=== PATIENT | female | born 1995 ===

== ENCOUNTER 2019-09-08 18:27 | Inpatient (IN) | payer OTHER ==
[2019-09-08] MEDS ORDERED: TERBUTALINE 1 MG/1 ML INJ SUB-Q PRN (21:17)
[2019-09-08] MEDS ORDERED: fentaNYL 100 MCG/2 ML INJ IV PRN (21:17)
[2019-09-08] MEDS ORDERED: ePHEDrine SULFATE 50 MG/1 ML INJ IV PRN (21:17)
[2019-09-08] MEDS ORDERED: LIDOCAINE (2%) 20 MG/1 ML VIAL 20 ML MDV INFILTRATI ONE (21:17)
[2019-09-08] MEDS ORDERED: ONDANSETRON 4 MG/2 ML INJ IV PRN (21:17)
[2019-09-08 21:34] LABS: Hematocrit 36.2 % (30.3-42.9); Hemoglobin 12.2 gm/dl (10.1-14.3); Mean Corpuscular HGB Conc 34 % (30-34); Mean Corpuscular Volume 92 fl (79-97); Platelet Count 247 K/mm3 (140-440); Red Blood Count 3.92 M/mm3 (3.65-5.03); Red Cell Distribution Width 14.9 % (13.2-15.2)
--- NOTE | 2019-09-08 21:34 | History and Physical Report ---
History of Present Illness Date of examination: 09/08/19 Date of admission: 09/08/2019 Chief complaint: Leaking of water from vagina. History of present illness: 24 year old female presents complaining of leaking of clear fluid from vagina since 15:30 today. Patient denies vaginal bleeding or regular contractions. Patient reports active movement. Patient received care at [facility] and records are available. LMP 12/04/18. EDC 09/10/19. EGA 39 weeks, 5 days gestation. significant for the following: limited care; late transfer-in from [place] at 29 weeks gestation; positive chlamydia during (jeanette ated with Zithromax); ASCUS pap/+ HPV during ; anemia. labs are as follows: B+, antibody screen negative, rubella immune, hepatitis B surface antigen negative, HIV negative, RPR nonreactive, chlamydia positive (SRINATH negative on 09/07/19), gonorrhea negative, diabetes screen 124, GBS negative. 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 denies: gonorrhea, hepatitis B, herpes, HIV, syphilis, trichomonas Family/Genetic History: diabetes, other (epilepsy (brother), depression (sister)) Social history: lives with family, full code. denies: smoking, alcohol abuse, prescription drug abuse, IV drug use - Obstetrical History Expected Date of Delivery: 09/10/19 Actual Gestation: 39 Week(s) 5 Day(s) : 1 Para: 0 Hx # Term Pregnancies: 0 Number of Pregnancies: 0 Spontaneous Abortions: 0 Induced : 0 Number of Living Children: 0 Medications and Allergies Allergies Allergy/AdvReac Type Severity Reaction Status Date / Time No Known Allergies Allergy Verified 09/08/19 21:36 Active Meds: Active Medications Ephedrine Sulfate (Ephedrine Sulfate) 10 mg IV Q2M PRN PRN Reason: Hypotension Fentanyl (Sublimaze) 100 mcg IV Q2H PRN PRN Reason: Labor Pain Oxytocin/Sodium Chloride (Pitocin/Ns 20 Unit/1000ml Drip) 20 units in 1,000 mls @ 125 mls/hr IV DIRECT JACINTA Oxytocin/Sodium Chloride (Pitocin/Ns 30 Unit/500ml) 30 units in 500 mls @ 0 mls/hr IV TITR JACINTA; Protocol Lactated Ringer's (Lactated Ringers) 1,000 mls @ 125 mls/hr IV DIRECT JACINTA Lidocaine (Xylocaine 2%) 20 ml INFILTRATI ONCE ONE Stop: 09/08/19 21:18 Ondansetron HCl (Zofran) 4 mg IV Q8H PRN PRN Reason: Nausea And Vomiting Terbutaline Sulfate (Brethine) 0.25 mg SUB-Q ONCE PRN PRN Reason: Hyperstimulation/Hypertonicity Review of Systems All systems: negative (leaking of water from vagina and irregular contractions) - Vital Signs Vital signs: Vital Signs Pulse BP 54 L 137/79 09/08/19 19:22 09/08/19 19:22 Temp Pulse Resp BP Pulse Ox 99.2 F 59 L 18 137/79 97 09/08/19 19:24 09/08/19 20:03 09/08/19 19:24 09/08/19 19:24 09/08/19 20:03 - Physical Exam Abdomen: Positive: normal appearance, soft. Negative: distention, tenderness, guarding, rigidity Genitourinary (Female): Positive: normal external genitalia, normal perenium. Negative: perineal/vulvar lesions (no ulcerative lesions noted on careful exam with bright light upon admission; 3 small vulvar condyloma noted on perineum) Vagina: Positive: other (clear fluid seen leaking from vagina) Uterus: Positive: enlarged (S=D) Extremities: Positive: normal. Negative: tenderness, edema - Obstetrical FHR: category 1 Uterine Contraction Monitor Mode: External Cervical Dilatation: 1.5 Cervical Effacement Percentage: 50 station: -3 Uterine Contraction Pattern: Irregular Uterine Contraction Intensity: Mild Results Result Diagrams: 09/08/19 20:30 All other labs normal. Assessment and Plan A: at 39 weeks, 5 days gestation. Spontaneous rupture of membranes. GBS negative. P: Admit. Continuous EFM. Pitocin augmentation of labor.
[2019-09-08] MEDS ORDERED: OXYTOCIN DRIP 30 UNITS/500 ML BAG IV SCH (22:00)
[2019-09-08] MEDS ORDERED: OXYTOCIN 20 UNIT/1000ML DRIP 20 UNITS/1,000 ML BAG IV SCH (22:00)
[2019-09-08] MEDS: LACTATED RINGERS 1,000 ML IV SCH (22:13)
--- NOTE | 2019-09-09 01:37 | Event Note ---
Date: 09/09/19 Several late appearing FHR decelerations noted per monitor with minimal FHR variability. Position change (left lateral, then right lateral), oxygen per face mask, IV fluid bolus instituted; Pitocin discontinued. FSE applied to better trace FHR. Contractions spacing and uterus palpates soft between contractions. Amniotic fluid remains clear. No improvement in FHR despite interventions. Called Dr. Momin and informed him of interventions taken and no improvement in FHR tracing. Dr. Momin reviewed FHR tracing and states he will deliver patient b y section. discussed need for section with patient via language line and reviewed the risks and benefits. Patient signed consent for section.
[2019-09-09] MEDS ORDERED: BICITRA ORAL LIQD 30ML PO ONE (01:43)
[2019-09-09] MEDS ORDERED: FAMOTIDINE 20 MG/2 ML INJ IV ONE ×2 (01:43→01:47)
[2019-09-09] MEDS ORDERED: METOCLOPRAMIDE 10 MG/2 ML INJ IV ONE (01:43)
[2019-09-09] MEDS ORDERED: BICITRA ORAL LIQD 30ML ONE (01:47)
[2019-09-09] MEDS ORDERED: METOCLOPRAMIDE 10 MG/2 ML INJ ONE (01:47)
--- NOTE | 2019-09-09 01:51 | Event Note ---
Date: 09/09/19 Called by BEE to assess strip. Around 30 min after Pitocin was stopped, pt was still having episodes of recurrent late decels and is still on 1cm dilated. Therefore due to NRFHT and being remote from delivery, pt consented for LTCS. 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 Risks, benefits and alternatives d/w pt. All questions answered.
[2019-09-09] MEDS: LACTATED RINGERS 1,000 ML IV SCH (01:56)
[2019-09-09] MEDS ORDERED: LACTATED RINGERS 1,000 ML IV SCH (02:00)
[2019-09-09] MEDS ORDERED: ceFAZolin/Water 2 GM/20 ML 2 GM/20 ML SYRINGE IV NR (02:00)
[2019-09-09] MEDS ORDERED: OXYTOCIN 20 UNIT/1000ML DRIP 20 UNITS/1,000 ML BAG IV SCH ×3 (02:00→07:00)
--- NOTE | 2019-09-09 02:02 | Anesthesia Day of Surgery ---
Anesthesia Day of Surgery - Day of Surgery Patient Examined: Yes Patient H&P Reviewed: Yes Patient is NPO: Yes
--- NOTE | 2019-09-09 02:02 | Anesthesia Consultation ---
Anesthesia Consult and Med Hx Date of service: 09/09/19 - Airway Anesthetic Teeth Evaluation: Good ROM Head & Neck: Adequate Mental/Hyoid Distance: Adequate Mallampati Class: Class II Intubation Access Assessment: Probably Good - Pulmonary Exam CTA: Yes - Cardiac Exam Cardiac Exam: RRR - Pre-Operative Health Status ASA Pre-Surgery Classification: ASA2 Proposed Anesthetic Plan: General, Spinal - Pulmonary Hx Asthma: No COPD: No Hx Pneumonia: No - Cardiovascular System Hx Hypertension: No - Central Nervous System Hx Seizures: No Hx Psychiatric Problems: No - Endocrine Hx Renal Disease: No Hx End Stage Renal Disease: No Hx Hypothyroidism: No Hx Hyperthyroidism: No - Hematic Hx Anemia: Yes (LAST DOSE OF IRON 1 MONTH AGO) Hx Sickle Cell Disease: No - Other Systems Hx Alcohol Use: No
[2019-09-09] MEDS ORDERED: ceFAZolin/STERILE WATER 2 GM/20 ML SYRINGE IV ONE (02:35)
[2019-09-09] MEDS ORDERED: BUPIVACAINE /DEX-WATER 0.75% (2 ML) AMPULE INFILTRATI ONE (02:39)
[2019-09-09] MEDS ORDERED: DEXMEDETOMIDINE 200 MCG/2 ML VIAL IV ONE (02:39)
[2019-09-09] MEDS ORDERED: SODIUM CHLORIDE 0.9% IRR 1,500 ML BOTTLE IR ONE (02:54)
[2019-09-09] MEDS ORDERED: KETOROLAC 30 MG/1 ML INJ ONE (03:26)
[2019-09-09] MEDS ORDERED: NALOXONE 0.4 MG/1 ML INJ IV PRN ×3 (03:33→07:30)
[2019-09-09] MEDS ORDERED: PROMETHAZINE 25 MG RECT SUPP PR PRN (03:33)
[2019-09-09] MEDS ORDERED: PROMETHAZINE 25 MG TAB PO PRN (03:33)
[2019-09-09] MEDS ORDERED: NalbUPHINE 10 MG/1 ML INJ IV PRN (03:33)
[2019-09-09] MEDS ORDERED: ONDANSETRON 4 MG/2 ML INJ IV PRN ×3 (03:33→07:30)
--- NOTE | 2019-09-09 03:33 | Post Anesthesia Evaluation ---
- Post Anesthesia Evaluation Patient Participated: Yes Airway Patent: Yes Stable Respiratory Function: Yes Nausea/Vomiting: No Temp > 96.8F: Yes Pain Manageable: Yes Adequeate Hydration: Yes Anesthesia Complications: No Block Receding Appropriately: Yes
[2019-09-09] MEDS ORDERED: IBUPROFEN 800 MG TAB PO SCH (04:00)
[2019-09-09] MEDS ORDERED: ACETAMINOPHEN 500 MG TAB PO SCH (04:00)
[2019-09-09] MEDS ORDERED: LANOLIN/ZINC/DIMETHICONE (LANSINOH) 7 GM TP PRN ×2 (04:02→07:30)
[2019-09-09] MEDS ORDERED: WITCH HAZEL/ GLYCERIN PAD TP PRN ×2 (04:02→07:00)
[2019-09-09] MEDS ORDERED: KETOROLAC 30 MG/1 ML INJ IV PRN (04:02)
[2019-09-09] MEDS ORDERED: HYDROCORTISONE 25 MG RECTAL SUPP PR PRN ×2 (04:06→10:00)
[2019-09-09] MEDS ORDERED: SENNOSIDES 8.6 MG TAB PO PRN ×2 (04:06→22:00)
[2019-09-09] MEDS ORDERED: MAGNESIUM HYDROXIDE (MOM) ORAL LIQD UDC PO PRN ×2 (04:06→22:00)
[2019-09-09] MEDS ORDERED: SIMETHICONE 80 MG CHEW TAB PO PRN ×2 (04:06→07:30)
[2019-09-09] MEDS ORDERED: HYDROcodone/ACETAMINOPHEN 5-325 MG TAB PO PRN (04:06)
--- NOTE | 2019-09-09 04:22 | Procedure Note ---
OB Delivery Note - Section Preop diagnosis: nonreassuring FHR tracing Postop diagnosis: same section procedure: primary low transverse Disposition: PACU Complications: none Narrative: Preop Dx: This is a 24-year-old at 39 and 6/7 weeks. Patient presented on 09/08/2019 status post spontaneous rupture membranes. Pitocin started as patient was 1 cm. Unfortunately patient early on in the augmentation process developed recurrent late decelerations even with the Pitocin turned off. Patient this point was still only 1 cm. As result of this nonreassuring heart tracing remote from delivery patient was counseled and consented for primary low transverse . Postoperative diagnosis is the same which is nonreassuring heart tracing remote from delivery. Procedure primary low transverse Surgeon Dr. Momin Anesthesia spinal Estimated blood loss 800 mL Findings: Patient of viable male with Apgars of 8 and 9. Clear fluid was noted. Loose nuchal cord 1 noted. Normal uterus tubes and ovaries were noted. Procedure: Patient taken to the operating room and prepped and draped in usual fashion. Pfannenstiel incision was then made and carried down to the underlying fascia incision and the fascial incision was made and extended bilaterally. Rectus fascia was then dissected off the rectus muscle both superiorly and inferiorly. Peritoneum was identified tented up and entered. Peritoneal incision was extended superiorly and inferiorly with good visualization of the bladder. Uterine incision was then made and extended bilaterally. Baby is then delivered without difficulty. This included reducing the loose nuchal cord. Delayed cord clamping was then done and after a minute the cord was clamped and cut and handed off to the waiting team. Cord blood obtained. At this point the placenta was delivered spontaneously. Uterus was exteriorized and cleared of all clots and debris. Uterine incision was then closed with 0 Vicryl in a running locked fashion followed by second imbricating layer of 0 Vicryl. Uterus tubes and ovaries then placed back in abdominal cavity. Pelvis was well irrigated. Good hemostasis noted. Interceed then placed over the uterine incision and over the lower uterine segment in the midline. Attention was then turned the rectus fascia which was reapproximated using 0 Vicryl in a running fashion. Subcutaneous tissue was well irrigated and reapproximated with 2-0 Vicryl in a running fashion. Skin was closed with 4-0 Vicryl in a subcuticular fashion followed by Dermabond. Patient tolerated the procedure well. All instrument and lap counts were correct. Patient taken to recovery room in stable condition. - A at 1 minute: 8 at 5 minutes: 9 Gender: Male
[2019-09-09] MEDS ORDERED: D5W/LACTATED RINGERS 1,000 ML IV SCH ×3 (05:00→07:00)
[2019-09-09] MEDS: KETOROLAC 30 MG/1 ML INJ IV SCH ×4 (06:38→23:16)
[2019-09-09] MEDS: HYDROcodone/ACETAMINOPHEN 5-325 MG TAB PO PRN ×2 (09:00→17:45)
[2019-09-10] MEDS ORDERED: IBUPROFEN 800 MG TAB PO PRN (04:02)
[2019-09-10] MEDS: IBUPROFEN 800 MG TAB PO PRN ×3 (05:24→18:18)
[2019-09-10] MEDS ORDERED: TETANUS,DIPH,PERTUSS(ACELL) VACCINE 0.5 ML SYRINGE IM ONE (06:00)
[2019-09-10] MEDS: HYDROcodone/ACETAMINOPHEN 5-325 MG TAB PO PRN ×3 (06:21→20:44)
[2019-09-10 07:07] LABS: Hematocrit 30.6 % (30.3-42.9); Hemoglobin 10.3 gm/dl (10.1-14.3)
--- NOTE | 2019-09-10 19:48 | Progress Note ---
Assessment and Plan A: /postop day 1 S/P primary low transverse section. Anemia secondary to and blood loss. P: Supplement with iron. Encouraged ambulation. Subjective - Subjective Date of service: 09/10/19 Principal diagnosis: /postop day 1 S/P primary low transverse section Interval history: /postop day 1 S/P primary low transverse section. Patient reports small amount of lochia. Voiding without difficulty. Ambulating well. Passing gas. Patient reports: appetite normal, voiding normally, pain well controlled, flatus, ambulating normally, no dizzy ambulation, no nauseated : doing well Objective - Vital Signs Latest vital signs: Vital Signs Temp Pulse Resp BP BP Pulse Ox 09/10/19 18:18 18 09/10/19 16:25 98.2 F 54 L 20 110/67 09/10/19 14:07 18 09/10/19 12:23 18 09/10/19 07:50 97.9 F 63 20 113/70 09/10/19 06:21 18 09/10/19 05:24 18 09/09/19 23:16 18 09/09/19 23:14 99.0 F 75 18 129/76 98 Intake and Output 09/10/19 09/10/19 09/10/19 07:59 15:59 23:59 Intake Total 360 240 360 Balance 360 240 360 Intake: Oral 360 240 360 Other: Total, Intake Amount 120 120 120 # Voids Void 1 1 1 - Exam Cardiovascular: Present: Regular rate, Normal S1, Normal S2, No murmurs Lungs: Present: Clear to auscultation Abdomen: Present: normal appearance, soft, normal bowel sounds. Absent: distention, tenderness, guarding, rigidity Uterus: Present: normal, firm, fundal height below umbilicus. Absent: bogginess, tenderness Extremities: Present: normal. Absent: tenderness, edema Incision: Present: normal, dry, intact, dressed
[2019-09-10] MEDS: FERROUS SULFATE 325 MG TAB PO SCH (20:44)
[2019-09-11] MEDS: IBUPROFEN 800 MG TAB PO PRN ×2 (05:16→11:55)
--- NOTE | 2019-09-11 11:51 | Progress Note ---
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 Patient reports: appetite normal, voiding normally, pain well controlled, flatus, ambulating normally, other (reports headache), no dizzy ambulation [place]: doing well, other (breast and bottle feeding) Objective - Vital Signs Latest vital signs: Vital Signs Temp Pulse Resp BP BP Pulse Ox 09/11/19 07:25 98.5 F 57 L 20 121/82 98 09/10/19 23:23 98.4 F 57 L 20 133/68 97 09/10/19 18:18 18 09/10/19 16:25 98.2 F 54 L 20 110/67 09/10/19 14:07 18 09/10/19 12:23 18 Intake and Output 09/10/19 09/11/19 09/11/19 23:59 07:59 15:59 Intake Total 600 120 Balance 600 120 Intake: Oral 600 120 Other: Total, Intake Amount 240 120 # Voids Void 1 1 # Bowel Movements 1 - Exam Cardiovascular: Present: Regular rate Lungs: Present: Clear to auscultation, Normal air movement Abdomen: Present: normal appearance, soft Uterus: Present: normal, firm, fundal height below umbilicus Extremities: Present: normal Incision: Present: normal, dry, intact Comments: scant lochia
[2019-09-11] MEDS: FERROUS SULFATE 325 MG TAB PO SCH (11:55)
--- NOTE | 2019-09-11 12:00 | Discharge Summary ---
Providers - Providers Date of Admission: 09/08/19 21:17 Date of discharge: 09/12/19 Attending physician: ROGE DEL TORO Primary care physician: ROGE DEL TORO Hospitalization Reason for admission: active labor, IUP at term Delivery: Procedure: primary low transverse Episiotomy: none Laceration: none Incision: normal, dry, intact Other procedures: none complications: none Discharge diagnosis: IUP at term delivered baby: male Hospital course: Uncomplicated Condition at discharge: Stable Disposition: DC-01 TO HOME OR SELFCARE - Discharge Diagnoses (1) S/P primary low transverse Status: Acute (2) Single live Status: Acute Plan - Discharge Medications Prescriptions: Ibuprofen [Motrin 800 MG tab] 800 mg PO Q6H PRN #30 tablet PRN Reason: Pain, Mild (1-3) - Provider Discharge Summary Activity: routine, no sex for 6 weeks, no heavy lifting 4 weeks, no strenuous exercise Diet: routine Instructions: routine Additional instructions: [] Smoking cessation referral if applicable(refer to patient education folder for contact #) [] Refer to [facility]'s [facility] Booklet Call your doctor immediately for: * Fever > 100.5 * Heavy vaginal bleeding ( >1 pad per hour) * Severe persistent headache * Shortness of breath * Reddened, hot, painful area to leg or breast * Drainage or odor from incision. * Keep incision clean and dry at all times and follow doctor's instructions regarding bathing/showering - Follow up plan Follow up: ROGE DEL TORO MD [Primary Care Provider] - 7 Days (Follow up at [facility] as needed or in 1 week for incision check)
[2019-09-11] MEDS: HYDROcodone/ACETAMINOPHEN 5-325 MG TAB PO PRN (18:48)
[2019-09-12] MEDS: IBUPROFEN 800 MG TAB PO PRN (00:11)
[2019-09-12] MEDS: HYDROcodone/ACETAMINOPHEN 5-325 MG TAB PO PRN (10:03)
[2019-09-12] MEDS: FERROUS SULFATE 325 MG TAB PO SCH (10:03)
[2019-09-12 12:42] VITALS: BP 111/63
== END 2019-09-12 13:45 | disposition home or self-care (01) | DRG 788 ==
LOC: TRG 18:27 → LD 18:29 → APU 21:17 → TRG 21:17 → OB 09-09 05:14
PROVIDERS: ADMIT Obstetrics & Gynecology; ATTEND Obstetrics & Gynecology
PROC: 10D00Z1 Extraction of Products of Conception, Low, Open Approach (ICD-10-PCS; principal; 2019-09-09)
PROC: 10H073Z Insertion of Monitoring Electrode into Products of Conception, Via Natural or Artificial Opening (ICD-10-PCS; 2019-09-09)
DX: O76 Abnormality in fetal heart rate and rhythm complicating labor and delivery (principal); Z3A.39 39 weeks gestation of pregnancy; Z37.0 Single live birth; O69.81X0 Labor and delivery complicated by cord around neck, without compression, not applicable or unspecified; O99.013 Anemia complicating pregnancy, third trimester; D50.0 Iron deficiency anemia secondary to blood loss (chronic)
CPT/HCPCS: 36415; 85014; 85018; 85027; 86592; 86850; 86900; 86901; 90471; 90715; G0378; A6250; C1765; J0690; J1885; J2590; J2765; J3490; J7120; J7121

== ENCOUNTER 2021-04-11 22:17 | Outpatient (CLI) | payer SELFPAY ==
[2021-04-11 22:55] VITALS: BP 124/72
== END 2021-04-12 00:10 | disposition home or self-care (01) ==
LOC: TRG 22:17 → APU 22:33 → TRG 04-12 00:10
PROVIDERS: ATTEND Obstetrics & Gynecology
DX: O26.893 Other specified pregnancy related conditions, third trimester (principal); L29.9 Pruritus, unspecified; Z3A.38 38 weeks gestation of pregnancy
CPT/HCPCS: 59025

== ENCOUNTER 2021-04-12 12:57 | Outpatient (CLI) | payer SELFPAY ==
[2021-04-12 13:33] VITALS: BP 117/71
--- NOTE | 2021-04-15 11:47 | Anesthesia Day of Surgery ---
Anesthesia Day of Surgery - Day of Surgery Patient Examined: Yes Patient H&P Reviewed: Yes Patient is NPO: Yes
--- NOTE | 2021-04-15 11:47 | Anesthesia Consultation ---
Anesthesia Consult and Med Hx Date of service: 04/15/21 - Airway Anesthetic Teeth Evaluation: Good ROM Head & Neck: Adequate Mental/Hyoid Distance: Adequate Mallampati Class: Class II Intubation Access Assessment: Probably Good - Pulmonary Exam CTA: Yes - Cardiac Exam Cardiac Exam: RRR - Pre-Operative Health Status ASA Pre-Surgery Classification: ASA2 Proposed Anesthetic Plan: Spinal - Pulmonary Hx Asthma: No COPD: No Hx Pneumonia: No - Cardiovascular System Hx Hypertension: No - Central Nervous System Hx Seizures: No Hx Psychiatric Problems: No - Endocrine Hx Renal Disease: No Hx End Stage Renal Disease: No Hx Hypothyroidism: No Hx Hyperthyroidism: No - Hematic Hx Anemia: Yes (LAST DOSE OF IRON 1 MONTH AGO) Hx Sickle Cell Disease: No - Other Systems Hx Alcohol Use: No
== END 2021-04-12 14:47 | disposition home or self-care (01) ==
LOC: TRG 12:57 → APU 12:58 → TRG 14:47
PROVIDERS: ATTEND Obstetrics & Gynecology
DX: Z34.03 Encounter for supervision of normal first pregnancy, third trimester (principal); Z3A.38 38 weeks gestation of pregnancy
CPT/HCPCS: 59025

== ENCOUNTER 2021-04-15 09:18 | Inpatient (IN) | payer MEDICAID, OTHER ==
[2021-04-15] MEDS ORDERED: LACTATED RINGERS 2,000 ML ONE (10:05)
[2021-04-15] MEDS ORDERED: BICITRA ORAL LIQD 30ML PO NR (10:07)
[2021-04-15] MEDS ORDERED: METOCLOPRAMIDE 10 MG/2 ML INJ IV NR (10:07)
[2021-04-15] MEDS ORDERED: FAMOTIDINE 20 MG/2 ML INJ IV NR (10:07)
[2021-04-15 10:19] LABS: Basophils # (Auto) 0.1 K/mm3 (0.0-0.1); Basophils % (Auto) 1.2 % (0.0-1.8); Eosinophils # (Auto) 0.1 K/mm3 (0.0-0.4); Eosinophils % (Auto) 1.6 % (0.0-4.3); Hematocrit 32.9 % (30.3-42.9); Hemoglobin 10.9 gm/dl (10.1-14.3); Lymphocytes # (Auto) 2.3 K/mm3 (1.2-5.4); Lymphocytes % (Auto) 37.6 % (13.4-35.0); Mean Corpuscular HGB Conc 33 % (30-34); Mean Corpuscular Volume 87 fl (79-97); Monocytes # (Auto) 0.5 K/mm3 (0.0-0.8); Platelet Count 279 K/mm3 (140-440); Red Cell Distribution Width 14.1 % (13.2-15.2)
--- NOTE | 2021-04-15 10:45 | History and Physical Report ---
History of Present Illness Date of examination: 04/15/21 Date of admission: 04/15/21 09:18 Chief complaint: repeat c/s History of present illness: 25 yo at 38w6d DONTA 04/23/21 with PNC at [facility] c/b prior c/s x 1 (for FTP), GDM (diet controlled), and new dx of cholestasis of presenting for scheduled repeat c/s. Patient denies labor complaints or PIH symptoms. +FM. PNC reviewed. Normal unless otherwise specified. 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 Family/Genetic History: diabetes Social history: no significant social history - Obstetrical History Expected Date of Delivery: 04/23/21 Actual Gestation: 38 Week(s) 6 Day(s) : 2 Para: 1 Number of Living Children: 1 Medications and Allergies Allergies Allergy/AdvReac Type Severity Reaction Status Date / Time No Known Allergies Allergy Verified 09/08/19 21:36 Home Medications Medication Instructions Recorded Confirmed Last Taken Type Plus Iron Tablet 1 tab PO QDAY 09/09/19 09/10/19 09/08/19 History Ibuprofen [Motrin 800 MG tab] 800 mg PO Q6H PRN #30 tablet 09/11/19 Unknown Rx oxyCODONE /ACETAMINOPHEN [Percocet 1 tab PO Q6HR PRN #20 tablet 09/11/19 Unknown Rx 5/325] Active Meds: Active Medications Citric Acid/Sodium Citrate (Bicitra Oral Liqd 30ml) 30 ml PO ONCE NR Stop: 04/15/21 13:00 Famotidine (Famotidine 20 Mg/2 Ml Inj) 20 mg IV ONCE NR Stop: 04/15/21 13:00 Lactated Ringer's (Lactated Ringers) 1,000 mls @ 2,250 mls/hr IV PREOP JACINTA Stop: 04/16/21 10:57 Oxytocin/Sodium Chloride (Pitocin/Ns 30 Unit/500ml) 30 units in 500 mls @ 0 mls/hr IV TITR JACINTA; Protocol Metoclopramide HCl (Metoclopramide 10 Mg/2 Ml Inj) 10 mg IV ONCE NR Stop: 04/15/21 13:00 Review of Systems All systems: negative (expect HPI) - Vital Signs Vital signs: Vital Signs Temp Resp 98.1 F 04/15/21 10:15 04/15/21 10:15 Temp Pulse Resp BP Pulse Ox 98.1 F 16 04/15/21 10:04/15/21 10:15 - Physical Exam Abdomen: Positive: normal appearance, normal bowel sounds Uterus: Positive: enlarged (gravid) - Obstetrical FHR: category 1 Uterine Contraction Monitor Mode: External Uterine Contraction Pattern: Absent Results Result Diagrams: 04/15/21 10:00 Abnormal lab results 04/15/21 Range/Units 10:00 Lymph % (Auto) 37.6 H (13.4-35.0) % [place] % (Auto) 8.0 H (0.0-7.3) % All other labs normal. Assessment and Plan - Patient Problems (1) H/O: Current Visit: Yes Status: Acute Plan to address problem: To OR for repeat c/s --Consented in the chart --Questions solicited and answered (2) Gestational diabetes Current Visit: Yes Status: Acute Plan to address problem: --Diet controlled, monitor CBGs (3) Cholestasis during Current Visit: Yes Status: Acute Plan to address problem: dx on 04/11/21. An indication for delivery. Ursodiol therapy per protocol.
[2021-04-15] MEDS ORDERED: OXYTOCIN DRIP 30 UNITS/500 ML BAG IV SCH ×2 (11:00→16:00)
[2021-04-15] MEDS: LACTATED RINGERS 1,000 ML IV SCH ×2 (11:00→13:00)
[2021-04-15] MEDS ORDERED: ceFAZolin/STERILE WATER 2 GM/20 ML SYRINGE IV NR (13:00)
[2021-04-15] MEDS ORDERED: ePHEDrine SULFATE 50 MG/1 ML INJ ONE (13:00)
[2021-04-15] MEDS ORDERED: KETOROLAC 30 MG/1 ML INJ ONE (13:07)
[2021-04-15] MEDS ORDERED: BUPIVACAINE/PF (0.5%) 5 MG/1 ML 30 ML VIAL INFILTRATI ONE (13:07)
[2021-04-15] MEDS ORDERED: PHENYLEPHRINE/NS 1,000 MCG/10 ML SYRINGE (OR USE) IV ONE (13:07)
[2021-04-15] MEDS ORDERED: ONDANSETRON 4 MG/2 ML INJ ONE (13:07)
[2021-04-15] MEDS ORDERED: dexAMETHasone 20 MG/5 ML VIAL ONE (13:07)
[2021-04-15] MEDS ORDERED: ceFAZolin/Water 2 GM/20 ML 2 GM/20 ML SYRINGE IV ONE (13:33)
[2021-04-15] MEDS ORDERED: HYDROCORTISONE 25 MG RECTAL SUPP PR PRN (15:06)
[2021-04-15] MEDS ORDERED: LANOLIN/ZINC/DIMETHICONE (LANSINOH) 7 GM TP PRN (15:06)
[2021-04-15] MEDS ORDERED: WITCH HAZEL/ GLYCERIN PAD TP PRN (15:06)
[2021-04-15] MEDS ORDERED: PROMETHAZINE 25 MG RECT SUPP PR PRN (15:06)
[2021-04-15] MEDS ORDERED: ACETAMINOPHEN 325 MG TAB PO PRN (15:06)
[2021-04-15] MEDS ORDERED: MAGNESIUM HYDROXIDE (MOM) ORAL LIQD UDC PO PRN (15:06)
[2021-04-15] MEDS ORDERED: SENNOSIDES 8.6 MG TAB PO PRN (15:06)
[2021-04-15] MEDS ORDERED: SIMETHICONE 80 MG CHEW TAB PO PRN (15:06)
[2021-04-15] MEDS ORDERED: ONDANSETRON 4 MG/2 ML INJ IV PRN (15:06)
[2021-04-15] MEDS ORDERED: MORPHINE 4 MG/1 ML INJ IV PRN (15:06)
[2021-04-15] MEDS ORDERED: NALOXONE 0.4 MG/1 ML INJ IV PRN (15:06)
--- NOTE | 2021-04-15 15:09 | Procedure Note ---
OB Delivery Note - Delivery Date of Delivery: 04/15/21 Surgeon: MAIKEL DAVIS JR Estimated blood loss: 300cc - Section Preop diagnosis: repeat Postop diagnosis: same section procedure: section, repeat low transverse Disposition: PACU Complications: none Narrative: Indication:5 yo at 38w6d DONTA 04/23/21 with PNC at [facility] c/b prior c/s x 1 (for FTP), GDM (diet controlled), and new dx of cholestasis of presenting for scheduled repeat c/s. Findings: Normal uterus, tubes and ovaries. Clear fluid. No nuchal cord. Delivery of female infant at 1428 Weight 3243g Height 18.25 inches APGARS 9/9 EBL 351 cc QBL IVF 1200cc UOP 50cc Procedure: Patient was taken to the operating room prepped and draped in the usual sterile fashion. Pfannenstiel skin incision was made and carried down to the underlying fascia. Fascia was incised and the incision was distended bilaterally. Rectus fascia was dissected off the rectus muscle superiorly and inferiorly. Peritoneum was identified and entered. Peritoneal incision extended superiorly and inferiorly. The bladder was visualized. The bladder blade was placed. Uterine hysterotomy incision was made and extended bilaterally. The baby was delivered in the typical vertex fashion. Baby was bulb suction at delivery. The cord was cut and clamped and handed off to the team. The placenta was delivered spontaneously. The uterus was exteriorized and cleared of all clots and debris. Uterine incision was closed with a 0 Vicryl in a running locked fashion. Good hemostasis was noted. Hemoblast was applied to the uterine incisional base to provide hemostasis. The urine was noted to be clear. Uterus, tubes, and ovaries were returned to the abdominal cavity. Bilateral gutters were cleared and the abdomen and pelvis were irrigated. Good hemostasis noted. The rectus muscle was reapproximated with 2-0 Vicryl. Attention was directed towards the rectus fascia which was reapproximated with 0 PDS in a running fashion. The subcutaneous tissue was irrigated and reapproximated with 2-0 Vicryl in a running fashion. Skin was closed with a 4-0 Vicryl in a subcuticular fashion. The procedure was completed and the patient tolerated the procedure well. All instruments and lap counts were correct x2. - Infant A at 1 minute: 9 at 5 minutes: 9 Infant Gender: Female
[2021-04-15] MEDS ORDERED: KETOROLAC 30 MG/1 ML INJ IV SCH (16:00)
--- NOTE | 2021-04-15 16:46 | Event Note ---
Date: 04/15/21 Found to have elevated BPs >160 in period. No Hx elevated BPs in . Dx preeclampsia with severe features. For Magnesium per protocol x 24H . PIH labs ordered. IV antihypertensive PRN severe range BPs.
[2021-04-15] MEDS ORDERED: MAGNESIUM SULFATE 4 GM/100 ML BAG IV ONE (17:00)
[2021-04-15 17:25] LABS: Bilirubin,Urine NEG (Negative); Blood,Urine NEG (Negative); Color,Urine Straw (Yellow); Mucus,Urine FEW /HPF; Protein,Urine <15 mg/dL mg/dL (Negative); Urobilinogen,Urine < 2.0 mg/dL (<2.0); WBC,Urine < 1.0 /HPF (0.0-6.0)
[2021-04-15 18:30] LABS: Hematocrit 34.2 % (30.3-42.9); Hemoglobin 11.4 gm/dl (10.1-14.3); Mean Corpuscular HGB Conc 33 % (30-34); Mean Corpuscular Volume 86 fl (79-97); Platelet Count 272 K/mm3 (140-440); Red Blood Count 3.98 M/mm3 (3.65-5.03); Red Cell Distribution Width 14.6 % (13.2-15.2)
[2021-04-15 18:54] LABS: Alanine Aminotransferase 33 units/L (7-56); Uric Acid 3.1 mg/dL (3.5-7.6)
[2021-04-16 09:14] LABS: Hematocrit 29.9 % (30.3-42.9); Hemoglobin 9.7 gm/dl (10.1-14.3)
--- NOTE | 2021-04-16 09:44 | Progress Note ---
Assessment and Plan s/p c/s, nl pp course. possible d/c in am. - Patient Problems (1) Cholestasis during Current Visit: Yes Status: Acute (2) Gestational diabetes Current Visit: Yes Status: Acute (3) H/O: Current Visit: Yes Status: Acute (4) 39 weeks gestation of Current Visit: No Status: Acute (5) Body mass index (BMI) 50.0-59.9, adult Current Visit: No Status: Acute (6) Maternal distress during labor and delivery Current Visit: No Status: Acute (7) Morbid (severe) obesity due to excess calories Current Visit: No Status: Acute (8) S/P primary low transverse Current Visit: No Status: Acute Subjective - Subjective Date of service: 04/16/21 Principal diagnosis: previous c section. term Patient reports: appetite normal, voiding normally, pain well controlled, ambulating normally [place]: doing well Objective - Vital Signs Latest vital signs: Vital Signs Temp Pulse Resp BP BP Pulse Ox 04/16/21 09:37 52 L 99 04/16/21 09:32 53 L 99 04/16/21 09:27 60 99 04/16/21 09:22 52 L 99 04/16/21 09:17 53 L 99 04/16/21 09:12 50 L 99 04/16/21 09:07 53 L 99 04/16/21 09:02 56 L 98 04/16/21 08:57 51 L 99 04/16/21 08:52 53 L 100 04/16/21 08:46 61 99 04/16/21 08:42 51 L 109/63 99 04/16/21 08:37 58 L 99 04/16/21 08:32 55 L 99 04/16/21 08:31 54 L 121/69 04/16/21 08:27 61 100 04/16/21 08:22 56 L 99 04/16/21 08:17 56 L 99 04/16/21 08:11 61 99 04/16/21 08:07 62 99 04/16/21 08:02 63 99 04/16/21 07:56 66 99 04/16/21 07:52 58 L 99 04/16/21 07:46 66 100 04/16/21 07:42 58 L 141/65 98 04/16/21 07:37 56 L 99 04/16/21 07:36 98.4 F 60 16 123/68 96 04/16/21 07:32 61 99 04/16/21 07:26 57 L 98 04/16/21 07:22 59 L 99 04/16/21 07:16 57 L 99 04/16/21 07:11 59 L 99 04/16/21 07:07 63 97 04/16/21 07:02 66 99 04/16/21 06:56 50 L 99 04/16/21 06:51 50 L 100 04/16/21 06:46 49 L 100 04/16/21 06:42 51 L 123/68 04/16/21 06:41 52 L 98 04/16/21 06:36 69 99 04/16/21 06:31 56 L 99 04/16/21 06:26 52 L 99 04/16/21 06:21 51 L 99 04/16/21 06:16 49 L 99 04/16/21 06:11 50 L 99 04/16/21 06:06 49 L 99 04/16/21 06:01 52 L 100 04/16/21 05:56 52 L 100 04/16/21 05:51 60 99 04/16/21 05:46 48 L 99 04/16/21 05:45 14 04/16/21 05:42 47 L 126/67 04/16/21 05:41 47 L 98 04/16/21 05:36 49 L 99 04/16/21 05:31 54 L 99 04/16/21 05:26 59 L 99 04/16/21 05:21 53 L 99 04/16/21 05:16 60 97 04/16/21 05:11 75 98 04/16/21 05:06 56 L 98 04/16/21 05:01 58 L 99 04/16/21 04:56 52 L 99 04/16/21 04:51 50 L 98 04/16/21 04:46 54 L 99 04/16/21 04:42 52 L 129/71 04/16/21 04:41 53 L 99 04/16/21 04:36 54 L 99 04/16/21 04:31 57 L 99 04/16/21 04:26 62 99 04/16/21 04:22 63 94 04/16/21 04:21 62 99 04/16/21 04:16 62 99 04/16/21 04:11 49 L 98 04/16/21 04:06 48 L 99 04/16/21 04:01 53 L 98 04/16/21 03:56 52 L 99 04/16/21 03:51 51 L 99 04/16/21 03:46 51 L 99 04/16/21 03:45 98.7 F 14 04/16/21 03:42 50 L 116/54 04/16/21 03:41 54 L 98 04/16/21 03:36 50 L 99 04/16/21 03:31 48 L 99 04/16/21 03:26 49 L 100 04/16/21 03:21 49 L 99 04/16/21 03:16 55 L 99 04/16/21 03:11 68 99 04/16/21 03:06 60 98 04/16/21 03:01 51 L 98 04/16/21 02:56 52 L 99 04/16/21 02:51 51 L 99 04/16/21 02:46 50 L 99 04/16/21 02:42 49 L 120/57 04/16/21 02:41 50 L 99 04/16/21 02:36 77 97 04/16/21 02:31 53 L 98 04/16/21 02:26 56 L 99 04/16/21 02:21 55 L 99 04/16/21 02:16 57 L 99 04/16/21 02:11 56 L 99 04/16/21 02:06 62 99 04/16/21 02:01 60 98 04/16/21 01:56 62 98 04/16/21 01:51 58 L 99 04/16/21 01:46 61 100 04/16/21 01:45 16 04/16/21 01:42 55 L 115/58 04/16/21 01:41 56 L 99 04/16/21 01:36 62 99 04/16/21 01:31 59 L 99 04/16/21 01:26 68 99 04/16/21 01:21 59 L 98 04/16/21 01:16 58 L 98 04/16/21 01:11 64 98 04/16/21 01:06 59 L 98 04/16/21 01:01 59 L 98 04/16/21 00:56 60 98 04/16/21 00:51 65 99 04/16/21 00:46 68 99 04/16/21 00:42 68 119/60 04/16/21 00:41 72 98 04/16/21 00:36 71 99 04/16/21 00:31 71 99 04/16/21 00:26 68 99 04/16/21 00:21 61 98 04/16/21 00:16 63 99 04/16/21 00:11 62 99 04/16/21 00:06 68 99 04/16/21 00:01 67 99 04/15/21 23:56 72 99 04/15/21 23:51 72 99 04/15/21 23:46 63 99 04/15/21 23:45 98.6 F 18 04/15/21 23:42 61 131/63 04/15/21 23:41 60 99 04/15/21 23:36 61 99 04/15/21 23:31 64 99 04/15/21 23:26 63 99 04/15/21 23:21 71 99 04/15/21 23:16 71 99 04/15/21 23:11 65 99 04/15/21 23:06 64 99 04/15/21 23:01 65 99 04/15/21 22:56 68 99 04/15/21 22:51 65 100 04/15/21 22:46 65 99 04/15/21 22:42 63 127/70 04/15/21 22:41 63 100 04/15/21 22:36 62 99 04/15/21 22:31 65 99 04/15/21 22:26 59 L 100 04/15/21 22:21 61 100 04/15/21 22:16 60 99 04/15/21 22:11 60 99 04/15/21 22:06 64 99 04/15/21 22:01 63 99 04/15/21 21:56 62 100 04/15/21 21:51 66 99 04/15/21 21:46 66 99 04/15/21 21:42 59 L 122/61 04/15/21 21:41 60 99 04/15/21 21:36 61 99 04/15/21 21:31 64 99 04/15/21 21:26 65 98 04/15/21 21:21 60 99 04/15/21 21:16 64 99 04/15/21 21:11 62 99 04/15/21 21:06 57 L 99 04/15/21 21:01 60 99 04/15/21 20:56 61 100 04/15/21 20:51 100 04/15/21 20:46 60 100 04/15/21 20:42 66 118/63 04/15/21 20:41 67 98 04/15/21 20:36 71 100 04/15/21 20:31 63 98 04/15/21 20:26 64 99 04/15/21 20:21 58 L 98 04/15/21 20:16 65 99 04/15/21 20:11 61 99 04/15/21 20:06 68 99 04/15/21 20:01 65 99 04/15/21 19:56 65 98 04/15/21 19:51 62 99 04/15/21 19:46 62 100 04/15/21 19:45 98.3 F 16 04/15/21 19:42 57 L 132/67 04/15/21 19:41 56 L 99 04/15/21 19:36 62 100 04/15/21 19:31 59 L 100 04/15/21 19:26 55 L 99 04/15/21 19:21 56 L 99 04/15/21 19:16 56 L 99 04/15/21 16:25 97.6 F 48 L 22 154/84 100 04/15/21 16:20 45 L 21 155/83 100 04/15/21 16:05 45 L 22 167/83 100 04/15/21 15:50 46 L 23 159/88 100 04/15/21 15:35 46 L 21 144/71 100 04/15/21 15:30 46 L 26 H 135/67 100 04/15/21 15:25 97.7 F 51 L 14 144/65 100 04/15/21 10:15 98.1 F 16 Intake and Output 04/15/21 04/16/21 04/16/21 23:59 07:59 15:59 Intake Total 500 Output Total 1650 Balance -1150 Intake: IV 500 Output: Urine 1650 Indwelling Catheter 750 Other: Total, Output Amount 350 - Exam Abdomen: Present: normal appearance, soft, other (wound non tender.) Extremities: Present: normal Incision: Present: normal, dry, intact - Labs Labs: Abnormal lab results 04/15/21 04/15/21 04/15/21 Range/Units 10:00 18:08 18:08 WBC 18.7 H (4.5-11.0) K/mm3 Hgb (10.1-14.3) gm/dl Hct (30.3-42.9) % Lymph % (Auto) 37.6 H (13.4-35.0) % [place] % (Auto) 8.0 H (0.0-7.3) % Creatinine 0.5 L (0.6-1.2) mg/dL Uric Acid 3.1 L (3.5-7.6) mg/dL Magnesium (1.7-2.3) mg/dL Lactate Dehydrogenase 233 H (91-180) units/L 04/16/21 04/16/21 Range/Units 00:25 08:54 WBC (4.5-11.0) K/mm3 Hgb 9.7 L (10.1-14.3) gm/dl Hct 29.9 L (30.3-42.9) % Lymph % (Auto) (13.4-35.0) % [place] % (Auto) (0.0-7.3) % Creatinine (0.6-1.2) mg/dL Uric Acid (3.5-7.6) mg/dL Magnesium 5.50 H (1.7-2.3) mg/dL Lactate Dehydrogenase (91-180) units/L
[2021-04-16] MEDS ORDERED: LACTATED RINGERS 1,000 ML ONE (14:19)
[2021-04-16] MEDS: MAGNESIUM SULFATE 40GM/1000ML 40 GM/1,000 ML BAG IV SCH ×2 (15:59→16:00)
[2021-04-16] MEDS: IBUPROFEN 800 MG TAB PO PRN ×2 (18:44→23:45)
[2021-04-16] MEDS: oxyCODONE /ACETAMINOPHEN 5-325MG TAB PO PRN (19:36)
[2021-04-17] MEDS: oxyCODONE /ACETAMINOPHEN 5-325MG TAB PO PRN ×2 (05:42→12:46)
[2021-04-17] MEDS: IBUPROFEN 800 MG TAB PO PRN ×2 (09:21→17:17)
--- NOTE | 2021-04-17 09:48 | Progress Note ---
Assessment and Plan POD # 2 A: S/P repeat LTCS Asymptomatic anemia P: D/C home today Subjective - Subjective Date of service: 04/17/21 Principal diagnosis: previous c section. term Patient reports: appetite normal, voiding normally, pain well controlled, flatus, ambulating normally [place]: doing well, bottle feeding Objective - Vital Signs Latest vital signs: Vital Signs Temp Pulse Resp BP BP Pulse Ox 04/17/21 09:06 98.4 F 55 L 20 108/70 99 04/17/21 04:41 98.2 F 50 L 20 115/68 100 04/16/21 23:44 98.2 F 51 L 20 115/63 100 04/16/21 20:55 98.2 F 51 L 20 122/58 98 04/16/21 18:00 98.4 F 59 L 17 120/53 99 04/16/21 17:46 64 80 L 04/16/21 17:42 66 99 04/16/21 17:37 70 99 04/16/21 17:36 98.9 F 62 18 120/69 99 04/16/21 17:32 62 120/69 100 04/16/21 17:27 54 L 99 04/16/21 17:26 54 L 120/68 04/16/21 17:22 62 99 04/16/21 17:17 62 100 04/16/21 17:12 62 98 04/16/21 17:07 58 L 99 04/16/21 17:02 48 L 100 04/16/21 16:57 62 99 04/16/21 16:52 57 L 99 04/16/21 16:47 56 L 100 04/16/21 16:42 53 L 100 04/16/21 16:37 54 L 100 04/16/21 16:32 55 L 100 04/16/21 16:27 57 L 100 04/16/21 16:26 52 L 121/63 04/16/21 16:22 54 L 99 04/16/21 16:17 55 L 99 04/16/21 16:12 53 L 100 04/16/21 16:07 57 L 99 04/16/21 16:02 98.6 F 50 L 18 114/64 99 04/16/21 15:57 53 L 99 04/16/21 15:52 50 L 99 04/16/21 15:47 51 L 99 04/16/21 15:42 49 L 99 04/16/21 15:37 50 L 99 04/16/21 15:32 49 L 99 04/16/21 15:27 47 L 99 04/16/21 15:26 48 L 114/64 04/16/21 15:22 49 L 99 04/16/21 15:17 63 99 04/16/21 15:12 48 L 99 04/16/21 15:07 48 L 99 04/16/21 15:02 48 L 99 04/16/21 14:57 47 L 99 04/16/21 14:52 47 L 99 04/16/21 14:47 51 L 99 04/16/21 14:42 49 L 99 04/16/21 14:37 51 L 99 04/16/21 14:32 56 L 99 04/16/21 14:27 54 L 99 04/16/21 14:26 53 L 116/70 04/16/21 14:22 55 L 99 04/16/21 14:17 54 L 99 04/16/21 14:12 53 L 99 04/16/21 14:07 54 L 99 04/16/21 14:02 64 98 04/16/21 13:57 58 L 98 04/16/21 13:52 57 L 99 04/16/21 13:47 59 L 99 04/16/21 13:42 58 L 99 04/16/21 13:37 55 L 100 04/16/21 13:32 57 L 99 04/16/21 13:27 62 99 04/16/21 13:26 66 125/76 04/16/21 13:22 62 99 04/16/21 13:17 57 L 99 04/16/21 13:12 59 L 99 04/16/21 13:07 67 99 04/16/21 13:02 62 100 04/16/21 12:57 55 L 100 04/16/21 12:52 61 99 04/16/21 12:47 58 L 99 04/16/21 12:46 52 L 121/67 04/16/21 12:42 58 L 99 04/16/21 12:37 59 L 99 04/16/21 12:32 57 L 99 04/16/21 12:27 98.4 F 56 L 18 163/62 163/62 96 04/16/21 12:22 48 L 100 04/16/21 12:17 50 L 99 04/16/21 12:12 54 L 99 04/16/21 12:07 56 L 99 04/16/21 12:02 50 L 99 04/16/21 11:57 53 L 99 04/16/21 11:52 50 L 99 04/16/21 11:47 50 L 99 04/16/21 11:42 52 L 99 04/16/21 11:37 50 L 99 04/16/21 11:32 50 L 99 04/16/21 11:27 49 L 100 04/16/21 11:26 48 L 105/58 04/16/21 11:22 51 L 99 04/16/21 11:17 47 L 99 04/16/21 11:12 51 L 99 04/16/21 11:07 50 L 98 04/16/21 11:02 59 L 99 04/16/21 10:57 54 L 99 04/16/21 10:52 52 L 99 04/16/21 10:47 52 L 99 04/16/21 10:42 52 L 99 04/16/21 10:37 53 L 99 04/16/21 10:32 52 L 99 04/16/21 10:27 52 L 98 04/16/21 10:26 52 L 110/63 04/16/21 10:22 54 L 99 04/16/21 10:17 52 L 99 04/16/21 10:12 50 L 99 04/16/21 10:07 53 L 98 04/16/21 10:02 53 L 99 04/16/21 09:57 52 L 99 04/16/21 09:52 51 L 99 04/16/21 09:47 50 L 99 Intake and Output 04/16/21 04/17/21 04/17/21 22:59 06:59 14:59 Intake Total 65.833 Output Total 600 600 Balance -534.167 -600 Intake: IV 65.833 MAGNESIUM SULFATE 40GM/ 65.833 1000ML 40 gm In 1,000 ml @ 2 GM/HR 50 mls/hr IV DIRECT JACINTA Rx#:[id number] Output: Urine 600 600 Void 600 600 Other: Total, Output Amount 600 600 # Voids Void 1 - Exam Breasts: Present: normal Abdomen: Present: normal appearance, soft, normal bowel sounds Vulva: both: normal Uterus: Present: normal, firm, fundal height below umbilicus Extremities: Present: normal Incision: Present: normal, dry, intact, dressed - Labs Labs: Abnormal lab results 04/16/21 04/16/21 Range/Units 13:30 17:51 Magnesium 6.50 H 4.80 H (1.7-2.3) mg/dL
--- NOTE | 2021-04-17 09:53 | Discharge Summary ---
Providers - Providers Date of Admission: 04/15/21 09:18 Date of discharge: 04/17/21 Attending physician: MAIKEL DAVIS JR, MD Primary care physician: MAIKEL DAVIS JR, MD Hospitalization Reason for admission: section Delivery: Procedure: repeat low transverse Episiotomy: none Laceration: none Incision: normal, dry, intact Other procedures: none complications: other (asymptomatic anemia) Discharge diagnosis: IUP at term delivered [place] baby: female Hospital course: Pt was admitted for a repeat LTCS. She developed asymptomatic anemia post c/s, otherwise no other pp complications were noted. See H&P, delivery summary, and pp notes. Condition at discharge: Stable Disposition: DC-01 TO HOME OR SELFCARE Plan - Discharge Medications Prescriptions: Ibuprofen [Motrin 800 MG tab] 800 mg PO Q6H PRN #30 tablet PRN Reason: Pain, Moderate (4-6) oxyCODONE /ACETAMINOPHEN [Percocet 5/325 mg] 1 tab PO Q6H PRN #30 tablet PRN Reason: Pain, Moderate (4-6) - Provider Discharge Summary Activity: routine, no sex for 6 weeks, no heavy lifting 4 weeks, no strenuous exercise Diet: routine Instructions: routine Additional instructions: [] Smoking cessation referral if applicable(refer to patient education folder for contact #) [] Refer to [facility] Booklet Call your doctor immediately for: * Fever > 100.5 * Heavy vaginal bleeding ( >1 pad per hour) * Severe persistent headache * Shortness of breath * Reddened, hot, painful area to leg or breast * Drainage or odor from incision. * Keep incision clean and dry at all times and follow doctor's instructions regarding bathing/showering - Follow up plan Follow up: MAIKEL DAVIS JR, MD [Primary Care Provider] - 14 Days
[2021-04-17] MEDS ORDERED: FERROUS SULFATE 325 MG TAB PO SCH (10:00)
[2021-04-17 17:23] VITALS: BP 99/54
== END 2021-04-17 18:45 | disposition home or self-care (01) | DRG 786 ==
LOC: APU 09:18 → LD 19:59 → OB 04-16 18:10
PROVIDERS: ADMIT Obstetrics & Gynecology; ATTEND Obstetrics & Gynecology
PROC: 10D00Z1 Extraction of Products of Conception, Low, Open Approach (ICD-10-PCS; principal; 2021-04-15)
DX: O24.420 Gestational diabetes mellitus in childbirth, diet controlled (principal); K83.1 Obstruction of bile duct; O26.62 Liver and biliary tract disorders in childbirth; Z20.822 Contact with and (suspected) exposure to COVID-19; O34.211 Maternal care for low transverse scar from previous cesarean delivery; Z3A.38 38 weeks gestation of pregnancy; Z37.0 Single live birth; O90.81 Anemia of the puerperium; E66.01 Morbid (severe) obesity due to excess calories; O99.214 Obesity complicating childbirth
CPT/HCPCS: 36415; 81001; 82565; 83615; 83735; 84450; 84460; 84550; 85014; 85018; 85025; 85027; 86592; 86850; 86900; 86901; G0378; J1100; J1885; J2370; J2405; J2765; J3475; J3490; J7120; U0003